=== PATIENT | male | born 1985 | race Caucasian/White ===

== ENCOUNTER 2023-05-06 15:27 | Outpatient (CLI) | payer OTHER, SELFPAY | END 2023-05-06 15:28 | disposition home or self-care (01) | LOC: NFLDREF 05-07 07:27 | PROVIDERS: PCP Physician Assistant Medical; Referring Provider Physician Assistant Medical; Visit Provider Emergency Medicine | DX: R63.4 Abnormal weight loss (principal) | CPT/HCPCS: 82040; 84155 ==